=== PATIENT | male | born 1960 | race Caucasian/White ===

== ENCOUNTER 2018-10-28 07:44 | Inpatient (IN) | payer SELFPAY, OTHER ==
[2018-10-28] MEDS: ONDANSETRON 4 MG INJ IV ×2 (08:10→09:43)
[2018-10-28] MEDS: morphine 4 MG/ML VIAL IV (08:10)
[2018-10-28] MEDS: ASPIRIN 81 MG TAB PO (08:10)
[2018-10-28 08:13] LABS: ADD MAN DIFF? NO
[2018-10-28 08:15] LABS: BASOPHIL # 0.1 10^3/ul (0.0-0.1); BASOPHILS % 0.7 % (0.0-2.0); EOSINOPHILS # 0.1 10^3/ul (0.0-0.5); EOSINOPHILS % 0.6 % (0.0-7.0); HEMATOCRIT 44.7 % (42.0-52.0); HEMOGLOBIN 15.2 g/dl (14.0-18.0); LYMPHOCYTES # 2.3 10^3/ul (0.8-2.9); MEAN CORPUSCULAR HEMOGLOBIN 30.2 pg (29.0-33.0); MEAN CORPUSCULAR VOLUME 88.7 fl (82.0-101.0); MEAN PLATELET VOLUME 9.6 fl (7.4-10.4); MONOCYTE # 0.6 10^3/ul (0.3-0.9); MONOCYTES % 5.6 % (0.0-11.0); NEUTROPHIL # 7.5 10^3/ul (1.6-7.5); NEUTROPHILS % 70.4 % (39.0-77.0); PLATELET COUNT 283 10^3/UL (140-415); RED BLOOD COUNT 5.04 10^6/ul (4.70-6.10); RED CELL DISTRIBUTION WIDTH 13.2 % (11.5-14.5)
[2018-10-28 08:15] LABS: WHITE BLOOD COUNT 10.7 10^3/ul (4.8-10.8)
[2018-10-28 08:34] LABS: ALANINE AMINOTRANSFERASE 26 IU/L (13-69); ALBUMIN 4.3 g/dl (3.3-4.9); ALBUMIN/GLOBULIN RATIO 1.22; ALKALINE PHOSPHATASE 81 IU/L (42-121); ANION GAP 12 (5-13); ASPARTATE AMINO TRANSFERASE 17 IU/L (15-46); BILIRUBIN,INDIRECT 0.3 mg/dl (0-1.1); BILIRUBIN,TOTAL 0.3 mg/dl (0.2-1.3); BLOOD UREA NITROGEN 11 mg/dl (7-20); CALCIUM 9.3 mg/dl (8.4-10.2); CARBON DIOXIDE 27 mmol/L (21-31); CHLORIDE 102 mmol/L (97-110); CREATININE 0.99 mg/dl (0.61-1.24); Estimated GFR > 60 mL/min (>60); GLUCOSE 133 mg/dl (70-220); LIPASE 64 U/L (23-300); SODIUM 141 mmol/L (135-144); TOTAL PROTEIN 7.8 g/dl (6.1-8.1)
[2018-10-28 08:45] LABS: TROPONIN-I < 0.012 ng/ml (0.000-0.120)
[2018-10-28] MEDS: HYDROmorphONE 2 MG/ML SYG IV (09:44)
[2018-10-28] MEDS ORDERED: ACETAMINOPHEN 325 MG TAB PO ×3 (10:00→15:30)
[2018-10-28] MEDS ORDERED: ONDANSETRON 4 MG INJ IV ×3 (10:00→15:30)
[2018-10-28] MEDS ORDERED: MIDAZOLAM 1 MG/ML 2 ML INJ IV (10:00)
[2018-10-28] MEDS ORDERED: HYDROmorphONE 1 MG/5 ML IV SYRINGE IV (10:00)
[2018-10-28] MEDS ORDERED: DIPHENHYDRAMINE 50 MG INJ IV (10:00)
[2018-10-28] MEDS ORDERED: hydrALAzine 20 MG INJ IV (10:00)
[2018-10-28] MEDS ORDERED: FENTAnyl 50 MCG/ML VIAL IV ×2 (10:00)
[2018-10-28] MEDS ORDERED: LABETALOL HCL 20MG INJ IV (10:00)
[2018-10-28] MEDS ORDERED: MEPERIDINE 25 MG INJ IV (10:00)
[2018-10-28] MEDS ORDERED: FENTAnyl 50 MCG/ML VIAL (10:03)
[2018-10-28] MEDS ORDERED: BUPIVACAINE 0.5%/EPI (SDV) 30 ML INJ (10:04)
[2018-10-28] MEDS ORDERED: LIDOCAINE 1% (MPF) 30 ML INJ (10:04)
[2018-10-28] MEDS ORDERED: MIDAZOLAM 1 MG/ML 2 ML INJ (10:05)
[2018-10-28] MEDS ORDERED: PROPOFOL 20 ML (10:07)
[2018-10-28] MEDS ORDERED: ROCURONIUM 50 MG INJ (10:07)
[2018-10-28] MEDS ORDERED: NEOSTIGMINE 3 MG/3 ML SYRINGE (10:07)
[2018-10-28] MEDS ORDERED: GLYCOPYRROLATE 0.4 MG INJ (10:07)
[2018-10-28] MEDS ORDERED: LIDOCAINE 2% (SDV) 5 ML INJ (10:07)
[2018-10-28] MEDS ORDERED: SUCCINYLCHOLINE CHLORIDE 100 MG/5 ML SYG IV (10:07)
[2018-10-28] MEDS ORDERED: METOCLOPRAMIDE 10 MG INJ (10:08)
[2018-10-28] MEDS ORDERED: ONDANSETRON 4 MG INJ (10:08)
[2018-10-28] MEDS ORDERED: DEXAMETHASONE 4 MG/ML 5 ML INJ (10:08)
[2018-10-28] MEDS ORDERED: ROPIVACAINE 0.5 % 30 ML VIAL (10:30)
[2018-10-28] MEDS ORDERED: LIDOCAINE 1%/EPI (1:100,000) (MDV) 20 ML (10:53)
[2018-10-28] MEDS ORDERED: CEFAZOLIN 1 GM INJ (10:54)
[2018-10-28] MEDS ORDERED: HYDROmorphONE 2 MG/ML SYG (11:03)
[2018-10-28] MEDS: LIDOCAINE 1% (MPF) 30 ML INJ INJ (11:05)
[2018-10-28] MEDS: BUPIVACAINE 0.5%/EPI (SDV) 30 ML INJ INJ (11:05)
[2018-10-28] MEDS ORDERED: IBUPROFEN 600 MG TAB PO (12:30)
[2018-10-28] MEDS ORDERED: OXYCODONE/ACETAMINOPHEN (5/325) TAB PO (12:30)
[2018-10-28] MEDS ORDERED: DIPHENHYDRAMINE 25 MG CAP PO (12:30)
[2018-10-28] MEDS ORDERED: morphine 2 MG INJ IV (12:30)
[2018-10-28] MEDS: LEVALBUTEROL (NEB) 1.25 MG/0.5 ML AMP HHN (12:33)
[2018-10-28] MEDS: HYDROmorphONE 1 MG/5 ML IV SYRINGE IV ×2 (12:55→13:00)
[2018-10-28 14:56] LABS: CREATINE KINASE 94 IU/L (23-200)
[2018-10-28 15:09] LABS: CK INDEX 0.5; TROPONIN-I < 0.012 ng/ml (0.000-0.120)
[2018-10-28] MEDS ORDERED: NACL 0.9% 3 ML SYG IV (15:30)
[2018-10-28] MEDS ORDERED: HYDROCODONE/APAP (5/325) TAB PO (15:30)
[2018-10-28] MEDS ORDERED: ZOLPIDEM 5 MG TAB PO (15:30)
[2018-10-28] MEDS: D5W-0.45 NACL + KCL 20 MEQ 1,000 ML IV ×2 (16:05→21:16)
[2018-10-28 20:45] LABS: CREATINE KINASE 310 IU/L (23-200)
[2018-10-28 20:56] LABS: CK INDEX 0.4; CK-MB 1.13 ng/ml (0.0-2.4); TROPONIN-I < 0.012 ng/ml (0.000-0.120)
[2018-10-28] MEDS ORDERED: CALCIUM CARBONATE 500 MG CHEW TAB (21:09)
[2018-10-28] MEDS: CALCIUM CARBONATE 500 MG CHEW TAB PO (21:19)
[2018-10-28] MEDS ORDERED: AL HYDROX/MG HYDROX/SIMETH 30 ML CUP PO (21:30)
[2018-10-28] MEDS: morphine 2 MG INJ IV (22:34)
[2018-10-29] MEDS: D5W-0.45 NACL + KCL 20 MEQ 1,000 ML IV ×3 (00:36→21:12)
[2018-10-29 05:50] LABS: ADD MAN DIFF? NO
[2018-10-29 05:52] LABS: WHITE BLOOD COUNT 12.7 10^3/ul (4.8-10.8)
[2018-10-29 05:52] LABS: BASOPHILS % 0.2 % (0.0-2.0); EOSINOPHILS % 0.1 % (0.0-7.0); HEMATOCRIT 39.8 % (42.0-52.0); HEMOGLOBIN 13.8 g/dl (14.0-18.0); LYMPHOCYTES # 2.1 10^3/ul (0.8-2.9); LYMPHOCYTES % 16.9 % (15.0-51.0); MEAN CORPUSCULAR HEMOGLOBIN 30.3 pg (29.0-33.0); MEAN CORPUSCULAR HGB CONC 34.7 g/dl (32.0-37.0); MEAN CORPUSCULAR VOLUME 87.5 fl (82.0-101.0); MEAN PLATELET VOLUME 9.7 fl (7.4-10.4); MONOCYTE # 1.2 10^3/ul (0.3-0.9); MONOCYTES % 9.5 % (0.0-11.0); NEUTROPHIL # 9.3 10^3/ul (1.6-7.5); NEUTROPHILS % 72.8 % (39.0-77.0); PLATELET COUNT 248 10^3/UL (140-415); RED BLOOD COUNT 4.55 10^6/ul (4.70-6.10); RED CELL DISTRIBUTION WIDTH 13.5 % (11.5-14.5)
[2018-10-29 06:26] LABS: ANION GAP 7 (5-13); BLOOD UREA NITROGEN 10 mg/dl (7-20); CARBON DIOXIDE 27 mmol/L (21-31); CHLORIDE 106 mmol/L (97-110); CREATININE 0.88 mg/dl (0.61-1.24); Estimated GFR > 60 mL/min (>60); GLUCOSE 147 mg/dl (70-220); MAGNESIUM 1.8 mg/dl (1.7-2.5); PHOSPHORUS 3.2 mg/dl (2.5-4.9); POTASSIUM 4.2 mmol/L (3.5-5.1); SODIUM 140 mmol/L (135-144)
[2018-10-29 08:44] LABS: HEMOGLOBIN A1C 5.7 % (0-5.9)
[2018-10-29] MEDS: FAMOTIDINE 20 MG TAB PO ×2 (09:48→21:08)
[2018-10-30 06:14] LABS: ADD MAN DIFF? NO
[2018-10-30 06:19] LABS: BASOPHIL # 0.1 10^3/ul (0.0-0.1); BASOPHILS % 0.6 % (0.0-2.0); EOSINOPHILS % 0.4 % (0.0-7.0); HEMATOCRIT 42.9 % (42.0-52.0); HEMOGLOBIN 14.3 g/dl (14.0-18.0); LYMPHOCYTES # 2.3 10^3/ul (0.8-2.9); LYMPHOCYTES % 21.2 % (15.0-51.0); MEAN CORPUSCULAR HEMOGLOBIN 29.9 pg (29.0-33.0); MEAN CORPUSCULAR HGB CONC 33.3 g/dl (32.0-37.0); MEAN CORPUSCULAR VOLUME 89.6 fl (82.0-101.0); MEAN PLATELET VOLUME 9.8 fl (7.4-10.4); MONOCYTE # 1.2 10^3/ul (0.3-0.9); MONOCYTES % 11.3 % (0.0-11.0); NEUTROPHILS % 65.7 % (39.0-77.0); PLATELET COUNT 242 10^3/UL (140-415); RED BLOOD COUNT 4.79 10^6/ul (4.70-6.10); RED CELL DISTRIBUTION WIDTH 13.9 % (11.5-14.5)
[2018-10-30 06:19] LABS: WHITE BLOOD COUNT 10.7 10^3/ul (4.8-10.8)
[2018-10-30] MEDS: FAMOTIDINE 20 MG TAB PO (09:34)
[2018-10-30] MEDS: D5W-0.45 NACL + KCL 20 MEQ 1,000 ML IV (09:39)
== END 2018-10-30 19:15 | disposition home or self-care (01) | DRG 418 ==
LOC: E/R 07:44 → REC 09:31 → PP2 13:40
PROC: 0FT44ZZ Resection of Gallbladder, Percutaneous Endoscopic Approach (ICD-10-PCS; principal; 2018-10-28 10:00)
DX: K80.00 Calculus of gallbladder with acute cholecystitis without obstruction (principal); R04.2 Hemoptysis; I10 Essential (primary) hypertension; E66.9 Obesity, unspecified
CPT/HCPCS: 36415; 71045; 76705; 80048; 80053; 82550; 82553; 83036; 83690; 83735; 84100; 84484; 85025; 88304; 93005; 94664; 96374; 96375; 99285-25

== ENCOUNTER 2018-11-14 11:05 | Emergency (ER) | payer MEDICAID ==
[2018-11-14 17:30] LABS: ADD MAN DIFF? NO
[2018-11-14 17:34] LABS: WHITE BLOOD COUNT 7.3 10^3/ul (4.8-10.8)
[2018-11-14 17:34] LABS: BASOPHIL # 0.1 10^3/ul (0.0-0.1); BASOPHILS % 1.1 % (0.0-2.0); EOSINOPHILS # 0.1 10^3/ul (0.0-0.5); EOSINOPHILS % 1.9 % (0.0-7.0); HEMATOCRIT 46.6 % (42.0-52.0); HEMOGLOBIN 15.4 g/dl (14.0-18.0); LYMPHOCYTES # 3.4 10^3/ul (0.8-2.9); LYMPHOCYTES % 46.6 % (15.0-51.0); MEAN CORPUSCULAR HEMOGLOBIN 29.4 pg (29.0-33.0); MEAN CORPUSCULAR VOLUME 89.1 fl (82.0-101.0); MEAN PLATELET VOLUME 9.4 fl (7.4-10.4); MONOCYTE # 0.5 10^3/ul (0.3-0.9); MONOCYTES % 7.3 % (0.0-11.0); NEUTROPHIL # 3.1 10^3/ul (1.6-7.5); NEUTROPHILS % 42.7 % (39.0-77.0); PLATELET COUNT 364 10^3/UL (140-415); RED BLOOD COUNT 5.23 10^6/ul (4.70-6.10)
[2018-11-14 17:51] LABS: ALANINE AMINOTRANSFERASE 13 IU/L (13-69); ALBUMIN 4.6 g/dl (3.3-4.9); ALBUMIN/GLOBULIN RATIO 1.09; ALKALINE PHOSPHATASE 90 IU/L (42-121); ANION GAP 9 (5-13); ASPARTATE AMINO TRANSFERASE 21 IU/L (15-46); BILIRUBIN,INDIRECT 0.4 mg/dl (0-1.1); BILIRUBIN,TOTAL 0.4 mg/dl (0.2-1.3); BLOOD UREA NITROGEN 10 mg/dl (7-20); CALCIUM 9.7 mg/dl (8.4-10.2); CARBON DIOXIDE 29 mmol/L (21-31); CHLORIDE 105 mmol/L (97-110); CREATININE 0.85 mg/dl (0.61-1.24); Estimated GFR > 60 mL/min (>60); GLUCOSE 88 mg/dl (70-220); LIPASE 74 U/L (23-300); SODIUM 143 mmol/L (135-144); TOTAL PROTEIN 8.8 g/dl (6.1-8.1)
[2018-11-14 17:54] LABS: PROTIME 14.3 Sec (11.9-14.9); PT RATIO 1.1
[2018-11-14 18:03] LABS: TROPONIN-I < 0.012 ng/ml (0.000-0.120)
[2018-11-14] MEDS: SODIUM CHLORIDE 0.9% 1L BAG IV* (18:33)
== END 2018-11-14 20:56 | disposition home or self-care (01) ==
LOC: E/R 11:05
DX: R10.9 Unspecified abdominal pain (principal); I10 Essential (primary) hypertension
CPT/HCPCS: 36415; 71045; 74176; 76705; 80053; 83605; 83690; 84484; 85025; 85610; 93005; 99285-25